=== PATIENT | male | born 1990 | race Caucasian/White ===

== ENCOUNTER 2017-03-15 09:34 | Emergency (ER) | payer SELFPAY ==
[2017-03-15] MEDS ORDERED: Ondansetron HCl/PF 4 MG/2 ML Vial ONE (10:17)
[2017-03-15 10:28] LABS: #Basophils 0.1 thou/uL (0.0-0.2); #Eosinphils 0.1 thou/uL (0.0-0.7); #Lymphocytes 2.5 thou/uL (1.20-3.40); #Monocytes 0.9 thou/uL (0.11-0.59); #Neutrophils 7.1 thou/uL (1.40-6.50); %Basophils 0.5 % (0.0-1.0); %Eosinophils 0.7 % (0.0-10.0); %Lymphocytes 23.9 % (21.0-51.0); Hematocrit 55.6 % (42.0-52.0); Mean Platelet Volume 6.5 fL (7.4-10.4); Red Blood Cell (RBC) Count 5.61 mill/uL (4.70-6.10); White Blood Cell (WBC) Count 10.6 thou/uL (4.8-10.8)
[2017-03-15] MEDS ORDERED: Ketorolac Tromethamine 30 MG/ML VIAL ONE (10:33)
[2017-03-15] MEDS ORDERED: Morphine 10 MG/ML VIAL SLOW IVP SCH (10:45)
[2017-03-15 10:52] LABS: ALT (SGPT) 30 U/L (8-55); AST (SGOT) 22 U/L (5-34); Alkaline Phosphatase 71 U/L (40-150); Anion Gap 11 mmol/L (10-20); BUN (Urea Nitrogen) 13 mg/dL (8.9-20.6); Bilirubin, Total 0.5 mg/dL (0.2-1.2); Calc. Creatinine Clearance 0 mL/min (70-130); Calcium 10.2 mg/dL (7.8-10.44); Carbon Dioxide 27 mmol/L (22-29); Chloride 106 mmol/L (98-107); Estimated GFR-MDRD Greater than 90; Globulin 2.5 g/dL (2.4-3.5); Lipase 23 U/L (8-78); Protein, Total 6.5 g/dL (6.0-8.3)
--- NOTE | 2017-03-15 11:07 | CT ---
NONCONTRAST ABDOMEN AND PELVIC CT SCAN: FINDINGS: The lung bases are clear. The liver, gallbladder, pancreas, and spleen are unremarkable. Adrenal gla nds are unremarkable. 0.9 cm diameter nonobstructing right renal calculus. Several other very tiny p unctate nonobstructing bilateral renal calculi. 1.2 cm diameter complex left renal hemorrhagic cyst. Normal appearing appendix. Bilateral pars defects at L5 with mild anterolisthesis of L5 on S1. No e vidence for large or small bowel obstruction, abscess, adenopathy or abnormal fluid collection withi n the abdomen or pelvis. IMPRESSION: Bilateral nonobstructing renal calculi. No evidence for acute obstruction. Normal appearing appen hanny. Left renal hyperdense hemorrhagic cyst. L5 pars defects with mild anterolisthesis of L5 on S1. POS: [facility]
[2017-03-15] MEDS ORDERED: Morphine 4 MG/ML VIAL ONE (11:35)
[2017-03-15 11:42] LABS: Bilirubin Negative (Negative); Blood, Urine Negative (Negative); Glucose, Urine (Dipstick) Negative (Negative); Ketone, Urine Negative (Negative); Nitrite Negative (Negative); Protein, Urine (Dipstick) Negative (Neg-Trace); Urobilinogen 0.2 mg/dL (0.2-1.0)
== END 2017-03-15 12:26 | disposition home or self-care (01) ==
LOC: ERS 09:34
DX: N28.1 Cyst of kidney, acquired (principal); F31.9 Bipolar disorder, unspecified; F90.9 Attention-deficit hyperactivity disorder, unspecified type; F17.210 Nicotine dependence, cigarettes, uncomplicated; Z87.442 Personal history of urinary calculi
CPT/HCPCS: 74176; 80053; 81003; 83690; 85025; 96361; 96374; 96375; J1885; J2270; J2405

== ENCOUNTER 2017-07-27 09:26 | Observation (INO) | payer SELFPAY ==
[~2017-07-27 09:26] MED LIST: Dexamethasone 20 MG/5 ML VIAL ONE; Ketorolac Tromethamine 30 MG/ML VIAL ONE; Lidocaine 1% PF 5 ML VIAL ONE; Ondansetron HCl/PF 4 MG/2 ML Vial ONE; PROPOFOL 200 MG/20 ML VIAL ONE; Succinylcholine Chloride 20 MG/ML 10 ml SYRINGE FS ONE
--- NOTE | 2017-07-27 10:04 | RAD ---
FOUR VIEWS RIGHT HAND: Indication: History of right hand injury after punching a wall. FINDINGS: There is a comminuted, externally rotated small finger metacarpal neck fracture with prominent volar angulation. There is some soft tissue gas overlying the dorsal aspect of the fracture site suspicious for open injury. No additional acute osseous abnormality is evident. IMPRESSION: Findings suspected for open, comminuted, angulated, small finger metacarpal neck fracture. POS: [facility]
[2017-07-27] MEDS ORDERED: Ketorolac Tromethamine 30 MG/ML VIAL ONE (10:24)
[2017-07-27] MEDS ORDERED: CEFAZOLIN/Water 2 GM/20 ML SYRINGE ONE (10:24)
[2017-07-27] MEDS ORDERED: Adacel (T-DAP) 0.5 ML VIAL ONE (10:24)
[2017-07-27 10:37] LABS: Bilirubin Negative (Negative); Blood, Urine Negative (Negative); Clarity CLEAR (Clear); Glucose, Urine (Dipstick) Negative (Negative); Leukocyte Negative (Negative); Nitrite Negative (Negative); Protein, Urine (Dipstick) Negative (Neg-Trace)
[2017-07-27 11:18] LABS: #Lymphocytes 1.2 thou/uL (1.20-3.40); #Monocytes 0.9 thou/uL (0.11-0.59); #Neutrophils 10.8 thou/uL (1.40-6.50); %Basophils 0.3 % (0.0-1.0); %Eosinophils 0.3 % (0.0-10.0); %Lymphocytes 9.5 % (21.0-51.0); %Monocytes 6.9 % (0.0-10.0); %Neutrophils 83.1 % (42.0-75.0); Hemoglobin 17.8 g/dL (14.0-18.0); Mean Corpuscular HGB CONC 32.8 g/dL (32.0-36.0); Mean Corpuscular Hemoglobin 32.2 pg (27.0-31.0); Mean Corpuscular Volume 98.2 fl (80.0-94.0); Mean Platelet Volume 6.3 fL (7.4-10.4); Platelet Count 211 thou/uL (130-400); RBC Distribution Width 12.9 % (11.5-14.5); Red Blood Cell (RBC) Count 5.53 mill/uL (4.70-6.10)
[2017-07-27] MEDS ORDERED: Morphine 4 MG/ML VIAL ONE (11:38)
[2017-07-27 11:59] LABS: ALT (SGPT) 22 U/L (8-55); AST (SGOT) 16 U/L (5-34); Albumin 4.3 g/dL (3.5-5.0); Alkaline Phosphatase 60 U/L (40-150); Anion Gap 13 mmol/L (10-20); BUN (Urea Nitrogen) 10 mg/dL (8.9-20.6); Bilirubin, Total 0.4 mg/dL (0.2-1.2); Calc. Creatinine Clearance 0 mL/min (70-130); Calcium 10.6 mg/dL (7.8-10.44); Carbon Dioxide 22 mmol/L (22-29); Chloride 107 mmol/L (98-107); Estimated GFR-MDRD 76; Globulin 2.4 g/dL (2.4-3.5); Glucose 122 mg/dL (70-105); Protein, Total 6.7 g/dL (6.0-8.3); Sodium 138 mmol/L (136-145)
[2017-07-27] MEDS ORDERED: Gentamicin 80 MG/2 ML VIAL ONE (12:09)
[2017-07-27] MEDS ORDERED: Bacitracin Zinc Ointment 30 gm TUBE ONE (13:07)
[2017-07-27] MEDS ORDERED: Bupivacaine PF 0.5% 30 ML VIAL ONE (13:07)
[2017-07-27] MEDS ORDERED: Midazolam HCl 2 mg/2 ml Vial ONE ×2 (13:16→13:34)
[2017-07-27] MEDS ORDERED: Fentanyl 250 MCG/5 ML VIAL ONE (13:16)
[2017-07-27] MEDS ORDERED: Sodium Chloride 0.9% 10 ML ONE (13:20)
[2017-07-27] MEDS ORDERED: Morphine Sulfate 2 MG/ML SYRINGE SLOW IVP PRN (15:12)
[2017-07-27] MEDS ORDERED: HYDROmorphone 2 MG/ML VIAL SLOW IVP PRN (15:12)
[2017-07-27] MEDS ORDERED: Meperidine HCl/PF 25 MG/ML VIAL SLOW IVP PRN (15:12)
[2017-07-27] MEDS ORDERED: Promethazine HCl 25 MG/ML VIAL SLOW IVP PRN (15:12)
[2017-07-27] MEDS ORDERED: traMADol HCl 50 MG TAB PO PRN (15:48)
[2017-07-27] MEDS ORDERED: Promethazine HCl 25 MG/ML VIAL IM PRN (15:48)
[2017-07-27] MEDS ORDERED: Bisacodyl 10 MG SUPP PR PRN (15:48)
[2017-07-27] MEDS ORDERED: Ondansetron HCl/PF 4 MG/2 ML Vial IV PRN (15:48)
[2017-07-27] MEDS ORDERED: TETANUS AND DIPHTHERIA TOX/PF 0.5 ML DISP.SYRIN IM SCH (16:00)
[2017-07-27] MEDS ORDERED: Morphine 4 MG/ML VIAL SLOW IVP PRN (16:30)
[2017-07-27 17:04] LABS: #Basophils 0.1 thou/uL (0.0-0.2); #Lymphocytes 1.2 thou/uL (1.20-3.40); #Monocytes 0.3 thou/uL (0.11-0.59); #Neutrophils 7.7 thou/uL (1.40-6.50); %Basophils 0.7 % (0.0-1.0); %Eosinophils 0.4 % (0.0-10.0); %Lymphocytes 12.8 % (21.0-51.0); %Monocytes 2.8 % (0.0-10.0); %Neutrophils 83.3 % (42.0-75.0); Hemoglobin 16.1 g/dL (14.0-18.0); Mean Corpuscular HGB CONC 32.2 g/dL (32.0-36.0); Mean Corpuscular Volume 99.4 fl (80.0-94.0); Mean Platelet Volume 7.3 fL (7.4-10.4); Platelet Count 203 thou/uL (130-400); RBC Distribution Width 12.8 % (11.5-14.5); Red Blood Cell (RBC) Count 5.02 mill/uL (4.70-6.10); White Blood Cell (WBC) Count 9.3 thou/uL (4.8-10.8)
[2017-07-27] MEDS ORDERED: Clindamycin (PEDI) 900 MG in Syringe 0 ML IVPB SCH (18:00)
[2017-07-27] MEDS: HYDROcodone/Acetaminophen 5/325 mg Tablet PO PRN (20:07)
[2017-07-27] MEDS: Sodium Chloride 0.9% 100 ML IV SCH ×2 (21:45→21:46)
[2017-07-27] MEDS: Ketorolac Tromethamine 30 MG/ML VIAL IVP SCH ×2 (21:46→22:58)
[2017-07-27] MEDS: Clindamycin/D5W 900 MG in Premix Bag 1 BAG IVPB SCH ×2 (21:46→22:57)
[2017-07-28] MEDS: HYDROcodone/Acetaminophen 5/325 mg Tablet PO PRN ×3 (00:34→13:24)
[2017-07-28] MEDS: Ketorolac Tromethamine 30 MG/ML VIAL IVP SCH ×2 (05:28→13:12)
[2017-07-28] MEDS: Clindamycin/D5W 900 MG in Premix Bag 1 BAG IVPB SCH ×2 (05:28→13:13)
[2017-07-28 08:40] VITALS: TEMP 98.9
[2017-07-28] MEDS ORDERED: FLU VACC QS2017-18 36 mo. & older 0.5 ML SYRINGE IM ONE (09:00)
--- NOTE | 2017-07-28 09:05 | RAD ---
INTRAOPERATIVE IMAGING OF THE RIGHT HAND: Date: 07-27-17 History: ORIF FINDINGS: There are two percutaneous pins overlying the fifth metacarpal, treating the previously noted fractur e of the fifth metacarpal. IMPRESSION: ORIF as above. POS: [facility]
--- NOTE | 2017-07-28 15:41 | OP ---
DATE OF PROCEDURE: 07/27/2017 PREOPERATIVE DIAGNOSIS: Open grade I small finger metacarpal fracture, neck shaft justified and ventura ed contamination superficially subcutaneous with paint in the wound. PROCEDURE PERFORMED: 1. Debridement of tears associated with open fracture. 2. Debridement of wound, 1 cm. 3. Open reduction and internal fixation with 2 K wires for open reduction and internal fixation all at the right small finger metacarpal neck fracture. SURGEON: Dr. Enzo Ramesh TOURNIQUET TIME: 30 minutes. ESTIMATED BLOOD LOSS: Estimated blood loss 20 mL. Mild pain contamination, white flakes of paint. INDICATIONS: Open fracture after the patient punched a wall which we now know from after procedure h ad white paint on the wall. DESCRIPTION OF PROCEDURE: After successful general LMA technique by , Dr. Ramesh, the surgeon performed timeout, the limb had been prepped and draped, the limb was exsanguinated, tourniquet infl ated to 250 mmHg. C-arm brought into the field to confirm fracture configuration. It was markedly d epressed, angulated and found in the front of the sagittal plane. We made a zigzag incision centered on the 1 cm wound, resected 1 mm circumference at the actual wound site and made an incision 2 cm di stal and 1 cm proximal. We then carried this down to subcutaneous tissue, split the extensor digitor um to the small finger from the extensor digitorum and here, we saw the fracture. Immediately under the tendon, we began to see flecks of paint, so we individually debrided those. Then, once debrided those we displaced the fracture and found some paint on the edge of the bone, debrided that, none was seen inside the fracture itself. There was some both medial and lateral to the metacarpal shaft and it was removed under direct visualization using loupes. We then had the patient's wound undergo finished debridement using the following techniques; A) ex cisional debridement; B) down to including bone and fascia and some denuded muscle. C. The instruments were as follows: [place] blade, curet multiple sizes, tenotomy scissors, Adson's, and a [place]. Lastly in deed there was the contamination with the white paint chips as described abo ve. Next, once we finished this debridement as listed and the irrigation with 3 liters normal saline with bacitracin 50,000 units per liter inside, we then began the open reduction. Reduction was maintaine d and held with a clamp, rotation was matched to the opposite side, as did the length, and then we pa ssed 2 K wires the first from the ulnar aspect into the subchondral epiphyseal indentation, down the shaft from the sagittal plane and maintained length and rotation so we could place another K wire in the same technique from the radial side at the same , clinically and radiographically the fractu re was anatomically reduced and the pins were well contained within the shaft in a frontal sagittal p gurvinder. No gross motion seen of the fracture. No malrotation, no angulation, no clawing. We released the tourniquet, we irrigated the skin once again to make sure we missed no paint fragments and began closure. We did not reapproximate the open part, but we closed the incision we made with interrupte d 4-0 nylon. Bulky dressing was applied and an ulnar gutter splint including the ring and the small and the long fingers. The patient left the operating room without evidence of anesthetic or operativ e complication was seen on record and all the fixation as listed above.
[2017-07-28 16:26] VITALS: BP 125/67
== END 2017-07-28 17:11 | disposition home or self-care (01) ==
LOC: ERS 09:26 → SDC 13:05 → SJJU 16:05
PROVIDERS: ADMIT Orthopaedic Surgery Hand Surgery; ATTEND Orthopaedic Surgery Hand Surgery
PROC: 0PSP04Z Reposition Right Metacarpal with Internal Fixation Device, Open Approach (ICD-10-PCS; principal; 2017-07-28)
PROC: 0PSP04Z Reposition Right Metacarpal with Internal Fixation Device, Open Approach (ICD-10-PCS; 2017-07-28)
DX: Y04.0XXA Assault by unarmed brawl or fight, initial encounter; F12.11 Cannabis abuse, in remission; F42.9 Obsessive-compulsive disorder, unspecified; F17.210 Nicotine dependence, cigarettes, uncomplicated; S62.326B Displaced fracture of shaft of fifth metacarpal bone, right hand, initial encounter for open fracture; Z79.891 Long term (current) use of opiate analgesic; F90.9 Attention-deficit hyperactivity disorder, unspecified type; Z79.2 Long term (current) use of antibiotics; F31.9 Bipolar disorder, unspecified
CPT/HCPCS: 36415; 76001; 80053; 81003; 85025; 90471; 90715; 96365; 96366; 96367; 96375; 96376; A4216; G0378; J1100; J1580; J1885; J2001; J2250; J2270; J2405; J2704; J3010; J3490; S0020

== ENCOUNTER 2017-07-29 12:48 | Emergency (ER) | payer SELFPAY ==
[2017-07-29 15:44] LABS: #Basophils 0.1 thou/uL (0.0-0.2); #Eosinphils 0.1 thou/uL (0.0-0.7); #Lymphocytes 2.4 thou/uL (1.20-3.40); #Monocytes 0.8 thou/uL (0.11-0.59); #Neutrophils 6.6 thou/uL (1.40-6.50); %Basophils 0.6 % (0.0-1.0); %Eosinophils 0.7 % (0.0-10.0); %Lymphocytes 24.5 % (21.0-51.0); %Monocytes 7.9 % (0.0-10.0); %Neutrophils 66.2 % (42.0-75.0); Hemoglobin 15.3 g/dL (14.0-18.0); Mean Corpuscular HGB CONC 33.1 g/dL (32.0-36.0); Mean Corpuscular Hemoglobin 32.1 pg (27.0-31.0); Mean Corpuscular Volume 96.7 fl (80.0-94.0); Mean Platelet Volume 6.1 fL (7.4-10.4); Platelet Count 208 thou/uL (130-400); RBC Distribution Width 12.9 % (11.5-14.5); Red Blood Cell (RBC) Count 4.78 mill/uL (4.70-6.10); White Blood Cell (WBC) Count 9.9 thou/uL (4.8-10.8)
[2017-07-29 16:03] LABS: ALT (SGPT) 19 U/L (8-55); AST (SGOT) 25 U/L (5-34); Albumin 3.9 g/dL (3.5-5.0); Alkaline Phosphatase 49 U/L (40-150); Anion Gap 10 mmol/L (10-20); BUN (Urea Nitrogen) 10 mg/dL (8.9-20.6); Bilirubin, Total 0.4 mg/dL (0.2-1.2); CK (CPK) 282 U/L (30-200); Calc. Creatinine Clearance 0 mL/min (70-130); Carbon Dioxide 27 mmol/L (22-29); Chloride 109 mmol/L (98-107); Estimated GFR-MDRD 86; Globulin 1.9 g/dL (2.4-3.5); Glucose 95 mg/dL (70-105); Potassium 4.1 mmol/L (3.5-5.1); Protein, Total 5.8 g/dL (6.0-8.3); Sodium 142 mmol/L (136-145)
[2017-07-29] MEDS ORDERED: Ketorolac Tromethamine 60 MG/2 ML VIAL ONE (16:32)
--- NOTE | 2017-07-29 16:33 | RAD ---
RADIOGRAPH CHEST 2 VIEWS: 07/29/17 HISTORY: 27-year-old male with chest pain. FINDINGS: There is no air space density, pulmonary edema, pleural effusion, or pneumothorax. IMPRESSION: No acute pulmonary findings. jn [] POS: [facility]
== END 2017-07-29 17:15 | disposition home or self-care (01) ==
LOC: ERS 12:48
DX: M79.662 Pain in left lower leg (principal); M79.661 Pain in right lower leg; F31.9 Bipolar disorder, unspecified; F90.9 Attention-deficit hyperactivity disorder, unspecified type; F42.9 Obsessive-compulsive disorder, unspecified; F17.210 Nicotine dependence, cigarettes, uncomplicated
CPT/HCPCS: 36415; 71046; 80053; 82550; 85025; 96372; J1885

== ENCOUNTER 2017-07-31 07:39 | Emergency (ER) | payer SELFPAY ==
[2017-07-31 08:31] LABS: #Basophils 0.1 thou/uL (0.0-0.2); #Eosinphils 0.1 thou/uL (0.0-0.7); #Lymphocytes 2.5 thou/uL (1.20-3.40); #Monocytes 0.9 thou/uL (0.11-0.59); #Neutrophils 9.2 thou/uL (1.40-6.50); %Basophils 0.6 % (0.0-1.0); %Eosinophils 0.5 % (0.0-10.0); %Lymphocytes 19.4 % (21.0-51.0); %Neutrophils 72.6 % (42.0-75.0); Hemoglobin 15.8 g/dL (14.0-18.0); Mean Corpuscular HGB CONC 33.2 g/dL (32.0-36.0); Mean Corpuscular Volume 96.4 fl (80.0-94.0); Platelet Count 234 thou/uL (130-400); RBC Distribution Width 12.7 % (11.5-14.5); Red Blood Cell (RBC) Count 4.94 mill/uL (4.70-6.10); White Blood Cell (WBC) Count 12.6 thou/uL (4.8-10.8)
[2017-07-31 09:00] LABS: ALT (SGPT) 26 U/L (8-55); AST (SGOT) 28 U/L (5-34); Acetaminophen Less than 6.0 mcg/mL (10.0-30.0); Albumin 4.1 g/dL (3.5-5.0); Alcohol Less than 10 mg/dL (Less than 10); Alkaline Phosphatase 60 U/L (40-150); Anion Gap 12 mmol/L (10-20); BUN (Urea Nitrogen) 10 mg/dL (8.9-20.6); Bilirubin, Total 0.5 mg/dL (0.2-1.2); CK (CPK) 170 U/L (30-200); Calc. Creatinine Clearance 0 mL/min (70-130); Calcium 10.2 mg/dL (7.8-10.44); Carbon Dioxide 26 mmol/L (22-29); Chloride 106 mmol/L (98-107); Estimated GFR-MDRD 87; Globulin 2.3 g/dL (2.4-3.5); Glucose 98 mg/dL (70-105); Potassium 3.8 mmol/L (3.5-5.1); Protein, Total 6.4 g/dL (6.0-8.3); Salicylate Less than 8.0 mg/dL (15.0-30.0); Sodium 140 mmol/L (136-145)
[2017-07-31 09:03] LABS: CKMB 1.7 ng/mL (0-6.6); Troponin I Less than 0.010 ng/mL (< 0.028)
--- NOTE | 2017-07-31 09:50 | RAD ---
RADIOGRAPH CHEST 2 VIEWS: HISTORY: A 27-year-old male with acute chest pain. FINDINGS: There is no air space density, pulmonary edema, pleural effusion, pneumothorax, or cardiomegaly. IMPRESSION: No acute cardiopulmonary findings. jn [] POS: [facility]
--- NOTE | 2017-08-06 20:42 | EKG ---
Test Reason : CP Blood Pressure : / mmHG Vent. Rate : 065 BPM Atrial Rate : 065 BPM P-R Int : 148 ms QRS Dur : 094 ms QT Int : 400 ms P-R-T Axes : 033 245 008 degrees QTc Int : 416 ms Normal sinus rhythm Right superior axis deviation Inferior infarct , age undetermined Abnormal ECG Confirmed by NURIS RICK ([id number]), assistant editor LORETTA CASTANON ([id number]) on 08/06/2017 8:41:19 PM Referred By: PRABHJOT Confirmed By:NURIS RICK
== END 2017-07-31 10:21 | disposition home or self-care (01) ==
LOC: ERS 07:39
DX: R00.2 Palpitations (principal); R07.9 Chest pain, unspecified; F31.9 Bipolar disorder, unspecified; F90.9 Attention-deficit hyperactivity disorder, unspecified type; F42.9 Obsessive-compulsive disorder, unspecified; F17.210 Nicotine dependence, cigarettes, uncomplicated; Z87.442 Personal history of urinary calculi
CPT/HCPCS: 36415; 71046; 80307; 82553; 84443; 84484; 85025; 93005

== ENCOUNTER 2018-03-17 13:06 | Emergency (ER) | payer MEDICAID, SELFPAY ==
[2018-03-17 13:45] LABS: #Basophils 0.1 thou/uL (0.0-0.2); #Eosinphils 0.1 thou/uL (0.0-0.7); #Lymphocytes 2.2 thou/uL (1.20-3.40); #Monocytes 1.2 thou/uL (0.11-0.59); #Neutrophils 7.5 thou/uL (1.40-6.50); %Basophils 0.5 % (0.0-1.0); %Eosinophils 0.6 % (0.0-10.0); %Monocytes 10.9 % (0.0-10.0); %Neutrophils 68.1 % (42.0-75.0); Hemoglobin 16.5 g/dL (14.0-18.0); Mean Corpuscular HGB CONC 32.3 g/dL (32.0-36.0); Mean Corpuscular Hemoglobin 30.6 pg (27.0-31.0); Mean Corpuscular Volume 94.8 fL (78.0-98.0); Mean Platelet Volume 6.7 fL (7.4-10.4); Platelet Count 232 thou/uL (130-400); RBC Distribution Width 12.7 % (11.5-14.5); Red Blood Cell (RBC) Count 5.41 mill/uL (4.70-6.10); White Blood Cell (WBC) Count 11.1 thou/uL (4.8-10.8)
[2018-03-17] MEDS ORDERED: Ondansetron PF 4 MG/2 ML Vial ONE (13:48)
[2018-03-17] MEDS ORDERED: Ondansetron ODT 4 MG TAB ONE (13:49)
[2018-03-17 14:07] LABS: ALT (SGPT) 25 U/L (8-55); AST (SGOT) 15 U/L (5-34); Alkaline Phosphatase 65 U/L (40-150); Anion Gap 11 mmol/L (10-20); BUN (Urea Nitrogen) 13 mg/dL (8.9-20.6); Bilirubin, Total 0.4 mg/dL (0.2-1.2); Calc. Creatinine Clearance 0 mL/min (70-130); Calcium 9.6 mg/dL (7.8-10.44); Carbon Dioxide 21 mmol/L (22-29); Chloride 110 mmol/L (98-107); Estimated GFR-MDRD Greater than 90; Globulin 2.6 g/dL (2.4-3.5); Glucose 102 mg/dL (70-105); Lipase 44 U/L (8-78); Magnesium 1.8 mg/dL (1.6-2.6); Potassium 3.7 mmol/L (3.5-5.1); Protein, Total 6.6 g/dL (6.0-8.3); Sodium 138 mmol/L (136-145)
[2018-03-17] MEDS ORDERED: Lidocaine Viscous Sol 2% 15 ml UD Cup ONE (14:15)
[2018-03-17] MEDS ORDERED: Mag-Al 1200 mg/1200 mg/30 ML UDCUP ONE (14:15)
--- NOTE | 2018-03-17 14:46 | ULT ---
SONOGRAM RIGHT UPPER QUADRANT: Date: 03/17/18 HISTORY: Abdominal pain. Right upper quadrant pain. Nausea, vomiting, and diarrhea. FINDINGS: Gallbladder has a normal appearance. It is incompletely distended. Common duct is 0.6 cm. Liver is di ffusely echogenic without focal mass or intrahepatic biliary dilatation. No free fluid. IMPRESSION: 1. No evidence of gallstones or biliary obstruction. 2. Hepatosteatosis. POS: [facility]
[2018-03-17 15:23] LABS: Bilirubin Negative (Negative); Blood, Urine Negative (Negative); Clarity CLEAR (Clear); Glucose, Urine (Dipstick) Negative (Negative); Leukocyte Negative (Negative); Nitrite Negative (Negative); Protein, Urine (Dipstick) Negative (Neg-Trace); Specific Gravity, Urine 1.007 (1.002-1.036); Urobilinogen 0.2 mg/dL (0.2-1.0); pH, Urine 6.5 (5.0-9.0)
== END 2018-03-17 15:25 | disposition home or self-care (01) ==
LOC: ERS 13:06
DX: K21.9 Gastro-esophageal reflux disease without esophagitis (principal); F17.210 Nicotine dependence, cigarettes, uncomplicated
CPT/HCPCS: 36415; 76705; 80053; 81003; 83690; 83735; 85025; J2405; Q0162

== ENCOUNTER 2018-11-27 08:33 | Emergency (ER) | payer MEDICAID, SELFPAY ==
[2018-11-27 09:20] LABS: #Eosinphils 0.2 thou/uL (0.0-0.7); #Lymphocytes 3.1 thou/uL (1.20-3.40); #Monocytes 1.2 thou/uL (0.11-0.59); #Neutrophils 6.1 thou/uL (1.40-6.50); %Basophils 0.3 % (0.0-1.0); %Eosinophils 1.5 % (0.0-10.0); %Lymphocytes 29.3 % (21.0-51.0); %Monocytes 11.2 % (0.0-10.0); %Neutrophils 57.7 % (42.0-75.0); Hemoglobin 15.1 g/dL (14.0-18.0); Mean Corpuscular HGB CONC 34.2 g/dL (32.0-36.0); Mean Corpuscular Hemoglobin 32.4 pg (27.0-31.0); Mean Corpuscular Volume 94.6 fL (78.0-98.0); Mean Platelet Volume 6.5 fL (7.4-10.4); Platelet Count 180 thou/uL (130-400); RBC Distribution Width 12.8 % (11.5-14.5); Red Blood Cell (RBC) Count 4.66 mill/uL (4.70-6.10); White Blood Cell (WBC) Count 10.5 thou/uL (4.8-10.8)
[2018-11-27 09:24] LABS: INR-International Normal Ratio 0.9; PTT 24.4 SEC (22.9-36.1); Prothrombin Time 11.7 SEC (12.0-14.7)
[2018-11-27 09:45] LABS: ALT (SGPT) 60 U/L (8-55); AST (SGOT) 31 U/L (5-34); Albumin 3.7 g/dL (3.5-5.0); Alkaline Phosphatase 56 U/L (40-150); Anion Gap 14 mmol/L (10-20); BUN (Urea Nitrogen) 14 mg/dL (8.9-20.6); Bilirubin, Total 0.2 mg/dL (0.2-1.2); Calc. Creatinine Clearance 0 mL/min (70-130); Carbon Dioxide 22 mmol/L (22-29); Chloride 106 mmol/L (98-107); Estimated GFR-MDRD Greater than 90; Globulin 2.1 g/dL (2.4-3.5); Glucose 99 mg/dL (70-105); Lipase 42 U/L (8-78); Potassium 3.8 mmol/L (3.5-5.1); Protein, Total 5.8 g/dL (6.0-8.3); Sodium 138 mmol/L (136-145)
== END 2018-11-27 10:15 | disposition home or self-care (01) ==
LOC: ERS 08:33
DX: S50.12XA Contusion of left forearm, initial encounter (principal); F31.9 Bipolar disorder, unspecified; F90.9 Attention-deficit hyperactivity disorder, unspecified type; F17.210 Nicotine dependence, cigarettes, uncomplicated; X58.XXXA Exposure to other specified factors, initial encounter
CPT/HCPCS: 36415; 80053; 83690; 85025; 85610; 85730; 99283

== ENCOUNTER 2019-04-16 17:07 | Emergency (ER) | payer SELFPAY ==
[2019-04-16] MEDS ORDERED: Adacel (T-DAP) 0.5 ML SYRINGE ONE (19:33)
== END 2019-04-16 20:03 | disposition home or self-care (01) ==
LOC: ERS 17:07
DX: T23.021A Burn of unspecified degree of single right finger (nail) except thumb, initial encounter (principal); F42.9 Obsessive-compulsive disorder, unspecified; F31.9 Bipolar disorder, unspecified; F90.9 Attention-deficit hyperactivity disorder, unspecified type; Z87.891 Personal history of nicotine dependence; X12.XXXA Contact with other hot fluids, initial encounter
CPT/HCPCS: 90471; 90715

== ENCOUNTER 2019-06-26 08:54 | Emergency (ER) | payer SELFPAY | END 2019-06-26 10:02 | disposition home or self-care (01) | LOC: ERS 08:54 | DX: M79.641 Pain in right hand (principal); F42.9 Obsessive-compulsive disorder, unspecified; F90.9 Attention-deficit hyperactivity disorder, unspecified type; F31.9 Bipolar disorder, unspecified; Z87.891 Personal history of nicotine dependence | CPT/HCPCS: 99283 ==

== ENCOUNTER 2019-07-04 19:59 | Emergency (ER) | payer SELFPAY ==
[2019-07-04] MEDS ORDERED: Ketorolac Tromethamine 60 MG/2 ML VIAL ONE (20:31)
== END 2019-07-04 20:55 | disposition home or self-care (01) ==
LOC: ERS 19:59
DX: K02.9 Dental caries, unspecified (principal); F31.9 Bipolar disorder, unspecified; F90.9 Attention-deficit hyperactivity disorder, unspecified type; F42.9 Obsessive-compulsive disorder, unspecified; Z87.891 Personal history of nicotine dependence
CPT/HCPCS: 96372; 99282; J1885

== ENCOUNTER 2019-09-27 08:11 | Inpatient (IN) | payer BC, SELFPAY ==
[2019-09-27 09:48] VITALS: BMI 34.2
[2019-09-27] MEDS ORDERED: diphenhydrAMINE 50 MG/ML VIAL IVP PRN (10:47)
[2019-09-27] MEDS ORDERED: Zolpidem Tartrate 5 MG TAB PO PRN (10:47)
[2019-09-27] MEDS ORDERED: Promethazine HCl 25 MG/ML VIAL IM PRN (10:47)
[2019-09-27] MEDS ORDERED: Morphine 4 MG/ML VIAL SLOW IVP PRN (10:47)
[2019-09-27] MEDS: Ketorolac Tromethamine 30 MG/ML VIAL IVP SCH ×3 (11:57→23:54)
[2019-09-27] MEDS: Sodium Chloride 0.9% 1,000 ML IV SCH ×2 (11:57→19:51)
--- NOTE | 2019-09-27 14:01 | HP ---
CHIEF COMPLAINT: Right flank pain. HISTORY OF PRESENT ILLNESS: This is a 29-year-old male with a history of kidney stone, which he was able to pass 3 or 4 years ago he thinks. He otherwise has not had any other stone episodes until about 2 o'clock this morning, at which point, he was awoken from sleep with severe right-sided flank pain with nausea. He reports the pain reached 10/10. He was seen at his local emergency room, where a CT scan identified a 1.2 cm right UPJ stone. He did have a white count of 17 and elevation of his creatinine. I was contacted for admission, and he has been transferred to [facility]. In speaking with him this afternoon, he reports that he is not having any severe pain, only mild discomfort about 5/10 to 6/10 intermittently. He denies dysuria, hematuria, nausea, fevers, or chills currently. PAST MEDICAL HISTORY: Kidney stone. PAST SURGICAL HISTORY: None. FAMILY HISTORY: Positive for recurrent stones in several family members. SOCIAL HISTORY: Works in [employer]. Denies substance abuse. MEDICATIONS: None. REVIEW OF SYSTEMS: Ten-point review of systems is negative except as mentioned above. PHYSICAL EXAMINATION: VITAL SIGNS: Afebrile. Vitals are stable. GENERAL: No acute distress. Conversant. HEENT: Head, normocephalic and atraumatic. Eyes; extraocular movements are intact. Sclerae are nonicteric. NECK: Supple. Trachea midline. LUNGS: Unlabored breathing. Symmetric chest expansion. HEART: Regular rate and rhythm. ABDOMEN: Soft, nontender, and nondistended. No suprapubic tenderness or flank tenderness. SKIN: Warm and dry. EXTREMITIES: Without clubbing, cyanosis, or edema. NEUROLOGIC: Alert and oriented x3. PSYCHIATRIC: Normal mood and affect. LABORATORY DATA: Lab work shows leukocytosis and acute kidney injury with elevated creatinine. CT scan: I personally reviewed his scan, which does show a 1.2 cm stone at the right UPJ with hydronephrosis on that side. ASSESSMENT AND PLAN: Obstructing right ureteral stone with hydronephrosis and leukocytosis. Acute kidney injury. IV hydration. The patient received Rocephin this morning and will again receive Rocephin tomorrow morning for possible urinary tract infection. Urine culture pending from [facility]. The patient and I discussed his options for managing his kidney stone at this point including observation, medical expulsive therapy, shock wave lithotripsy, ureteroscopy with laser. We have decided together to proceed with ureteroscopy tomorrow morning. I explained the procedure in detail including the expected postoperative course and the risks of bleeding, infection, pain, inability to access or clear the stone, need for second procedure, injury to the ureter, formation of ureteral stricture. He expressed understanding of these risks and wishes to proceed. TIME SPENT: Greater than 70 minutes spent in the patient's care. Job ID: [id number]
[2019-09-27] MEDS: HYDROcodone/Acetaminophen 10/325 mg Tablet PO PRN ×2 (16:38→20:33)
[2019-09-27] MEDS: Docusate 100 MG CAP PO SCH (19:51)
[2019-09-28] MEDS: HYDROcodone/Acetaminophen 10/325 mg Tablet PO PRN ×2 (00:37→10:23)
[2019-09-28] MEDS: Sodium Chloride 0.9% 1,000 ML IV SCH (03:34)
[2019-09-28] MEDS: Ketorolac Tromethamine 30 MG/ML VIAL IVP SCH ×2 (05:58→12:28)
[2019-09-28 06:00] LABS: #Eosinphils 0.1 thou/uL (0.0-0.7); #Lymphocytes 2.4 thou/uL (1.20-3.40); #Monocytes 0.9 thou/uL (0.11-0.59); #Neutrophils 6.1 thou/uL (1.40-6.50); %Basophils 0.4 % (0.0-1.0); %Eosinophils 0.8 % (0.0-10.0); %Monocytes 9.2 % (0.0-10.0); %Neutrophils 64.6 % (42.0-75.0); Hemoglobin 14.9 g/dL (14.0-18.0); Mean Corpuscular HGB CONC 31.7 g/dL (32.0-36.0); Mean Corpuscular Hemoglobin 31.1 pg (27.0-31.0); Mean Corpuscular Volume 98.2 fL (78.0-98.0); Mean Platelet Volume 6.9 fL (7.4-10.4); Platelet Count 216 thou/uL (130-400); RBC Distribution Width 12.9 % (11.5-14.5); Red Blood Cell (RBC) Count 4.78 mill/uL (4.70-6.10); White Blood Cell (WBC) Count 9.5 thou/uL (4.8-10.8)
[2019-09-28 06:19] LABS: Anion Gap 10 mmol/L (10-20); BUN (Urea Nitrogen) 26 mg/dL (8.9-20.6); Calc. Creatinine Clearance 123 mL/min (70-130); Calcium 9.7 mg/dL (7.8-10.44); Carbon Dioxide 24 mmol/L (22-29); Chloride 108 mmol/L (98-107); Estimated GFR-MDRD 59; Glucose 98 mg/dL (70-105); Potassium 3.8 mmol/L (3.5-5.1); Sodium 138 mmol/L (136-145)
[2019-09-28] MEDS ORDERED: cefTRIAXone\\ROCEPHIN 1 GM in Sodium Chloride 0.9% 100 ML IVPB SCH (07:00)
[2019-09-28 08:07] VITALS: BP 129/73; TEMP 97.9
[2019-09-28] MEDS ORDERED: Iopamidol 50 ML FS ONE (08:28)
[2019-09-28] MEDS ORDERED: Fentanyl 100 MCG/2 ML VIAL ONE (08:31)
[2019-09-28] MEDS ORDERED: Famotidine/PF 20 mg/2ml Vial ONE (08:31)
[2019-09-28] MEDS ORDERED: Ondansetron PF 4 MG/2 ML Vial ONE (08:47)
[2019-09-28] MEDS ORDERED: Metoclopramide HCl 10 MG/2 ML VIAL ONE (08:47)
[2019-09-28] MEDS ORDERED: Lidocaine 1% PF 5 ML VIAL ONE (08:47)
[2019-09-28] MEDS ORDERED: PROPOFOL 200 MG/20 ML VIAL ONE (08:47)
[2019-09-28] MEDS ORDERED: Dexamethasone 20 MG/5 ML VIAL ONE (08:47)
--- NOTE | 2019-09-28 08:49 | PRG ---
DATE OF SERVICE: 09/28/2019 SUBJECTIVE: No problems overnight. Pain has been very well controlled, reaching only 3/10 at times. He denies fevers, nausea, dysuria, hematuria, headaches, chest pains. REVIEW OF SYSTEMS: 10-point review of system is otherwise negative. OBJECTIVE: VITAL SIGNS: Afebrile. Vitals stable overnight. GENERAL: No acute distress, conversant. LUNGS: Breathing nonlabored, symmetric chest expansion. HEART: Regular rate and rhythm. ABDOMEN: Soft, nontender, nondistended. No flank tenderness. No suprapubic tenderness. SKIN: Warm and dry. NEUROGENIC: Alert and oriented x3. LABORATORY DATA: From this morning, white count down to 9.5, creatinine remains elevated at 1.42. ASSESSMENT AND PLAN: 1. Hospital day 2, obstructing right ureteropelvic junction stone. 2. Acute kidney injury has improved, but persists secondary to the obstructing stone. 3. We again discussed his options and have decided to proceed with ureteroscopy today. We again reviewed the postop course and the risks and the need for stent removal in about 1 week. He understands and wishes to proceed. 4. Discharge anticipated later today. Job ID: [id number]
[2019-09-28] MEDS ORDERED: Tamsulosin HCl 0.4 MG CAP PO SCH (09:00)
[2019-09-28] MEDS ORDERED: Promethazine HCl 25 MG/ML VIAL IM PRN (09:39)
[2019-09-28] MEDS ORDERED: Ondansetron HCl/PF 4 MG/2 ML Vial IVP PRN (09:39)
[2019-09-28] MEDS ORDERED: Promethazine HCl 25 MG/ML VIAL SLOW IVP PRN (09:39)
--- NOTE | 2019-09-28 09:46 | RAD ---
Exam: Retrograde IVP HISTORY: Renal calculi and right ureteropelvic junction calculus COMPARISON: None Correlation: Stone CT 09/27/2019 FINDINGS: 2 intraprocedural fluoroscopic views are submitted for interpretation. Retrograde opacifica tion of the right intrarenal collecting system. No filling defects. Mild dilatation. Right ureteral stent is identified. IMPRESSION: Intraprocedure fluoroscopy as above.
[2019-09-28] MEDS: Docusate 100 MG CAP PO SCH (10:24)
--- NOTE | 2019-09-28 10:31 | OP ---
DATE OF PROCEDURE: 09/28/2019 PREOPERATIVE DIAGNOSIS: Right ureteropelvic junction stone. POSTOPERATIVE DIAGNOSIS: Right ureteropelvic junction stone. PROCEDURES PERFORMED: Right ureteroscopy with laser lithotripsy, basket extraction of stone fragments, retrograde pyelogram, and 6 x 26 double-J ureteral stent placement. ANESTHESIA: General. COMPLICATIONS: None. BLOOD LOSS: None. SPECIMEN: Right renal stone fragments. DESCRIPTION OF PROCEDURE: After informed consent, the patient was taken to the operating room, transferred to the table under his own power. Anesthesia was established. A time-out was performed showing the correct patient, site, and procedure. He was prepped and draped in the lithotomy position. The rigid cystoscope was advanced through the urethra, noting a normal course and caliber of the urethra with a nonobstructing prostate and then guided into the bladder. The bladder was systematically examined noting no mucosal abnormalities. The right ureteral orifice was cannulated with a wire, which was passed up to the renal pelvis under fluoroscopic guidance. A 45 cm access sheath was placed over the wire into the proximal ureter under fluoroscopic guidance. A retrograde pyelogram was performed through this showing good filling of the renal pelvis with mild hydronephrosis. He does have a stone seen on sterile supply technician image at the UPJ. The flexible ureteroscope was passed through the access sheath into the renal pelvis, where the stone was easily encountered. The 200 micron laser fiber was used to carefully dust the stone into only a few clinically significant stone fragments. The Nitinol basket was used to retrieve the clinically significant stone fragments. The renal pelvis was then re-examined noting no fragments remaining that required removal. The renal pelvis was filled with contrast and then a wire was replaced. The scope and access sheath withdrawn over the wire and then a 6 x 26 double-J ureteral stent was passed over the wire with a curl in the kidney and curl in the bladder. The bladder was then drained. At the end of the case, all counts were correct. He is awoke from anesthesia, transferred back to his hospital bed, and taken to PACU in stable condition, where he will return to the floor before being discharged home later today. Job ID: [id number]
--- NOTE | 2019-09-28 12:35 | DIS ---
DATE OF ADMISSION: 09/27/2019 DATE OF DISCHARGE: 09/28/2019 CHIEF COMPLAINT: Right flank pain. DISCHARGE DIAGNOSES: 1. Right ureteropelvic junction stone. 2. Hydronephrosis. 3. Acute kidney injury. 4. Leukocytosis. HOSPITAL COURSE: The patient presented to [facility] ER with severe right flank pain, where CT scan identified a 1.2-cm obstructing UPJ stone. He was transferred to [place] and managed with IV fluids and pain control overnight. The following morning, he was taken to the operating room for ureteroscopy with laser lithotripsy. There were no surgical complications. He recovered well postoperatively and was ready for discharge home later that day. DISCHARGE MEDICATIONS: Home medications will include; 1. Tramadol. 2. Bactrim. 3. Oxybutynin. 4. Tamsulosin. 5. Ibuprofen. DISCHARGE PLAN: Follow up in 1 to 2 weeks for cystoscopy and stent removal in my office. Regular diet. Activity as tolerated. Job ID: [id number]
== END 2019-09-28 13:55 | disposition home or self-care (01) | DRG 661 ==
LOC: SURG A 09:23
PROVIDERS: ADMIT Urology; ATTEND Urology
PROC: 0T768DZ Dilation of Right Ureter with Intraluminal Device, Via Natural or Artificial Opening Endoscopic (ICD-10-PCS; principal; 2019-09-28)
PROC: 0TC38ZZ Extirpation of Matter from Right Kidney Pelvis, Via Natural or Artificial Opening Endoscopic (ICD-10-PCS; 2019-09-28)
PROC: BT1DYZZ Fluoroscopy of Right Kidney, Ureter and Bladder using Other Contrast (ICD-10-PCS; 2019-09-28)
DX: N13.2 Hydronephrosis with renal and ureteral calculous obstruction (principal); N17.9 Acute kidney failure, unspecified; D72.829 Elevated white blood cell count, unspecified
CPT/HCPCS: 36415; 74420; 80048; 82365; 85025; 88300; C1769; J0696; J1885; J2270; J3010; J3490; Q9967; S0028

== ENCOUNTER 2021-12-03 22:27 | Observation (INO) | payer SELFPAY ==
[2021-12-04 01:19] VITALS: BMI 33.0
[2021-12-04] MEDS ORDERED: Ondansetron ODT 4 MG TAB PO PRN (01:42)
[2021-12-04] MEDS ORDERED: Acetaminophen 325 MG TAB PO PRN (01:42)
[2021-12-04] MEDS ORDERED: Bisacodyl 5 MG TAB PO PRN (01:42)
[2021-12-04] MEDS ORDERED: Ondansetron PF 4 MG/2 ML Vial IVP PRN (01:42)
[2021-12-04] MEDS ORDERED: Senokot S 8.6-50 MG TAB PO PRN (01:42)
[2021-12-04] MEDS: Sodium Chloride 0.9% 1,000 ML IV SCH ×4 (02:26→16:28)
[2021-12-04 05:36] LABS: #Basophils 0.1 thou/uL (0.0-0.2); #Eosinphils 0.1 thou/uL (0.0-0.7); #Monocytes 1.4 thou/uL (0.11-0.59); #Neutrophils 6.1 thou/uL (1.40-6.50); %Basophils 0.9 % (0.0-1.0); %Eosinophils 0.8 % (0.0-10.0); %Lymphocytes 34.2 % (21.0-51.0); Hemoglobin 15.7 g/dL (14.0-18.0); Mean Corpuscular Hemoglobin 31.2 pg (27.0-31.0); Mean Corpuscular Volume 94.4 fL (78.0-98.0); Mean Platelet Volume 6.9 fL (7.4-10.4); Platelet Count 220 thou/uL (130-400); RBC Distribution Width 12.7 % (11.5-14.5); Red Blood Cell (RBC) Count 5.05 mill/uL (4.70-6.10); White Blood Cell (WBC) Count 11.7 thou/uL (4.8-10.8)
[2021-12-04] MEDS: HYDROcodone/Acetaminophen 5/325 mg Tablet PO PRN ×3 (05:37→16:26)
[2021-12-04 05:51] LABS: ALT (SGPT) 34 U/L (8-55); AST (SGOT) 38 U/L (5-34); Albumin 4.2 g/dL (3.5-5.0); Alkaline Phosphatase 80 U/L (40-110); Anion Gap 14 mmol/L (10-20); BUN (Urea Nitrogen) 28 mg/dL (8.9-20.6); Bilirubin, Total 0.5 mg/dL (0.2-1.2); Calc. Creatinine Clearance 109 mL/min (70-130); Calcium 10.3 mg/dL (7.8-10.44); Carbon Dioxide 21 mmol/L (22-29); Chloride 103 mmol/L (98-107); Estimated GFR 58; Globulin 2.9 g/dL (2.4-3.5); Glucose 136 mg/dL (70-105); Potassium 3.4 mmol/L (3.5-5.1); Protein, Total 7.1 g/dL (6.0-8.3); Sodium 135 mmol/L (136-145)
[2021-12-04] MEDS ORDERED: Enoxaparin Sodium 40 MG/0.4 ML SYRINGE SC SCH (09:00)
[2021-12-04 14:27] LABS: Anion Gap 14 mmol/L (10-20); BUN (Urea Nitrogen) 12 mg/dL (8.9-20.6); CK (CPK) 65 U/L (30-200); Calc. Creatinine Clearance 148 mL/min (70-130); Calcium 9.2 mg/dL (7.8-10.44); Carbon Dioxide 28 mmol/L (22-29); Chloride 102 mmol/L (98-107); Estimated GFR 84; Glucose 110 mg/dL (70-105); Sodium 141 mmol/L (136-145)
[2021-12-04] MEDS ORDERED: Potassium Chloride 20 MEQ TAB PO SCH (16:00)
[2021-12-04 18:40] LABS: Anion Gap 11 mmol/L (10-20); BUN (Urea Nitrogen) 20 mg/dL (8.9-20.6); Calc. Creatinine Clearance 182 mL/min (70-130); Calcium 9.5 mg/dL (7.8-10.44); Carbon Dioxide 24 mmol/L (22-29); Chloride 106 mmol/L (98-107); Estimated GFR 108; Glucose 99 mg/dL (70-105); Potassium 3.7 mmol/L (3.5-5.1); Sodium 137 mmol/L (136-145)
[2021-12-04 20:01] VITALS: BP 138/66; TEMP 97.6
== END 2021-12-04 19:45 | disposition home or self-care (01) ==
LOC: MSONC 12-04 00:52
PROVIDERS: ADMIT Student in an Organized Health Care Education/Training Program; ATTEND Family Medicine
DX: M62.82 Rhabdomyolysis (principal); N17.9 Acute kidney failure, unspecified; E86.0 Dehydration; E87.1 Hypo-osmolality and hyponatremia; E87.6 Hypokalemia; F17.210 Nicotine dependence, cigarettes, uncomplicated; Z20.822 Contact with and (suspected) exposure to COVID-19; Z88.5 Allergy status to narcotic agent; Z91.018 Allergy to other foods
CPT/HCPCS: 36415; 80053; 82550; 83935; 84300; 85025; 96360; 96361; 96372; G0378; J1650; J7050; U0003; U0005